=== PATIENT | male | born 1970 | race Caucasian/White ===

== ENCOUNTER 2022-03-27 19:31 | Inpatient (IN) | payer OTHER ==
[~2022-03-27] VITALS: Ht 170.2 cm; Wt 81.6 kg
[2022-03-28 06:37] LABS: HEMOGLOBIN 11.8 gm/dl (14.0-17.5); RED BLOOD COUNT 4.25 M/UL (4.20-5.50)
[2022-03-28 06:52] LABS: BUN/CREATININE RATIO 20 (0-10)
[2022-03-29 02:53] LABS: HEMOGLOBIN 10.5 gm/dl (14.0-17.5); RED BLOOD COUNT 3.8 M/UL (4.20-5.50)
[2022-03-29 04:27] LABS: BUN/CREATININE RATIO 19 (0-10)
[2022-03-29 08:12] LABS: VITAMIN D, 25-HYDROXY 45.1 ng/mL (30.0-100.0)
[2022-03-29 09:30] LABS: CANDIDA ALBICANS Not Detected (Negative); CANDIDA KRUSEI Not Detected (Negative); CANDIDA TROPICALIS Not Detected (Negative); ESCHERICHIA COLI Not Detected (Negative); HAEMOPHILUS INFLUENZAE Not Detected (Negative); KLEBSIELLA OXYTOCA Not Detected (Negative); KLEBSIELLA PNEUMONIAE Not Detected (Negative); KPC-CARBAPENEM-RESISTANCE GENE Not Detected (Negative); PROTEUS Not Detected (Negative); PSEUDOMONAS AERUGINOSA Not Detected (Negative); SERRATIA MARCESANS Not Detected (Negative); STREP AGALACTIAE (GROUP B) Not Detected (Negative); STREP PYOGENES (GROUP A) Not Detected (Negative); STREPTOCOCCUS Not Detected (Negative); vanA/B (VANCOMYCIN RESIST GENE Not Detected (Negative)
[2022-03-29 10:47] LABS: STAPHYLOCOCCUS DETECTED (Negative); STAPHYLOCOCCUS AUREUS DETECTED (Negative)
[2022-03-30 06:32] LABS: HEMOGLOBIN 9.4 gm/dl (14.0-17.5); RED BLOOD COUNT 3.45 M/UL (4.20-5.50); WHITE BLOOD COUNT 9.8 K/UL (4.5-11.0)
[2022-03-30 06:56] LABS: BUN/CREATININE RATIO 14 (0-10)
[2022-03-31 07:25] LABS: HEMOGLOBIN 9.7 gm/dl (14.0-17.5); RED BLOOD COUNT 3.66 M/UL (4.20-5.50)
[2022-03-31 07:28] LABS: WHITE BLOOD COUNT 12.4 K/UL (4.5-11.0)
[2022-03-31 08:09] LABS: BUN/CREATININE RATIO 15 (0-10)
[2022-03-31 14:43] LABS: BUN/CREATININE RATIO 21 (0-10)
[2022-03-31 21:10] LABS: CHLAMYDIA TRACHOMATIS, NAA Negative (Negative); NEISSERIA GONORRHOEAE, NAA Negative (Negative)
[2022-04-01 06:18] LABS: HEMOGLOBIN 10.7 gm/dl (14.0-17.5); RED BLOOD COUNT 3.93 M/UL (4.20-5.50); WHITE BLOOD COUNT 12.2 K/UL (4.5-11.0)
[2022-04-01 06:45] LABS: BUN/CREATININE RATIO 20 (0-10)
[2022-04-01 07:11] LABS: HIV AB/P24 AG SCREEN Non Reactive (Non Reactive)
[2022-04-01 15:45] LABS: BUN/CREATININE RATIO 22 (0-10)
--- NOTE | 2022-04-01 17:13 | NUR ---
Pt currently resting comfortably.
[2022-04-02 07:28] LABS: BUN/CREATININE RATIO 21 (0-10)
[2022-04-02 15:20] LABS: BUN/CREATININE RATIO 19 (0-10)
[2022-04-02 19:49] LABS: BUN/CREATININE RATIO 21 (0-10)
[2022-04-03 06:37] LABS: BUN/CREATININE RATIO 18 (0-10)
[2022-04-03] MEDS ORDERED: ENOXAPARIN40 MG/0.4 SC (10:37)
[2022-04-03] MEDS ORDERED: HYDROXYZINE PAM25 MG PO (10:37)
[2022-04-03] MEDS ORDERED: FLORANEX GRANU1 EACH PO (10:37)
[2022-04-03] MEDS ORDERED: ROXICODONE TAB 55 MG PO (10:37)
[2022-04-03] MEDS ORDERED: MELATONIN3 MG PO (10:37)
[2022-04-03] MEDS ORDERED: SODIUM CHLORIDE1 G1 PO (10:37)
--- NOTE | 2022-04-03 11:28 | NUR ---
ATTEMPTED TO PLACE A PICC LINE TO THE LEFT BASILIC VEIN X1 STICK USING ULTRASOUND GUIDANCE AND STERILE TECHINQUE I WAS ABLE TO OBTAIN ACCESS INTO VEIN BUT UNABLE TO THREAD PICC LINE CATHETER TO THE SVC, THE PICC LINE WOULD THREAD HALF TO 3/[address] IN AND WOULD HIT AN OBSTRUCTION THAT I WAS UNABLE TO PASS PT REFUSED TO LET ME ATTEMPT ON THE RIGHT ARM AT THIS TIME PRIMARY RN LOGAN NOTIFIED AND WILL SPEAK WITH DR. ORTIZ I ATTEMPTED TO CALL DR. ORTIZ WITH NO ANSWER LOGAN WILL NOTIFIY
[2022-04-03 20:13] LABS: HBSAG SCREEN Negative (Negative); HCV AB >11.0 (0.0-0.9); HCV LOG10 5.299 (.); HEP A AB, IGM Negative (Negative); HEP B CORE AB, IGM Negative (Negative); HEPATITIS C QUANTITATION 199000 IU/mL (.)
[2022-04-04 07:24] LABS: BUN/CREATININE RATIO 21 (0-10)
== END 2022-04-04 08:38 | DRG 853 ==
LOC: M/S 19:31 → MED SURG 4 20:56
PROVIDERS: Internal Medicine; Internal Medicine Infectious Disease; Internal Medicine Nephrology; Orthopaedic Surgery; ADMIT Internal Medicine
PROC: 3E1U38Z Irrigation of Joints using Irrigating Substance, Percutaneous Approach (ICD-10-PCS; 2022-03-28)
PROC: 0SBC0ZZ Excision of Right Knee Joint, Open Approach (ICD-10-PCS; principal; 2022-03-28 17:30)
PROC: B24BZZZ Ultrasonography of Heart with Aorta (ICD-10-PCS; 2022-03-30)
PROC: 05JY3ZZ Inspection of Upper Vein, Percutaneous Approach (ICD-10-PCS; 2022-04-03)
DX: A41.02 Sepsis due to Methicillin resistant Staphylococcus aureus (principal); Z20.822 Contact with and (suspected) exposure to COVID-19; I26.99 Other pulmonary embolism without acute cor pulmonale; N17.9 Acute kidney failure, unspecified; M00.861 Arthritis due to other bacteria, right knee; L02.415 Cutaneous abscess of right lower limb; E22.2 Syndrome of inappropriate secretion of antidiuretic hormone; E87.2 Acidosis; R91.1 Solitary pulmonary nodule; M65.861 Other synovitis and tenosynovitis, right lower leg; R94.5 Abnormal results of liver function studies; E87.5 Hyperkalemia; F17.210 Nicotine dependence, cigarettes, uncomplicated; K21.9 Gastro-esophageal reflux disease without esophagitis; D64.9 Anemia, unspecified; Z96.643 Presence of artificial hip joint, bilateral; Z83.3 Family history of diabetes mellitus
CPT/HCPCS: ECHO; 36415; 71250; 73562; 80048; 80053; 80074; 82436; 82533; 82550; 82553; 82728; 83540; 83550; 83605; 83735; 83880; 83935; 84100; 84133; 84300; 84439; 84443; 85025; 85027; 85652; 86140; 86141; 87040; 87070; 87077; 87150; 87186; 87205; 87389; 93306; 97110; 97116; 97116-GP-CQ; 97162; 97166; 97530-GP-CQ; C1751; J0690; J0696; J0878; J1170; J1650; J1885; J2001; J2250; J2270; J2405; J2704; J3010; J3370; J7070; Q0177; U0002

== ENCOUNTER → 2022-05-20 | Outpatient (CLI) | payer OTHER ==
[~2022-05-20] MED LIST: ENOXAPARIN40 MG/0.4 SC; FLORANEX GRANU1 EACH PO; HYDROXYZINE PAM25 MG PO; MELATONIN3 MG PO; ROXICODONE TAB 55 MG PO; SODIUM CHLORIDE1 G1 PO
== END ==
LOC: MRI 05-09 15:00
DX: M00.9 Pyogenic arthritis, unspecified (principal); M86.9 Osteomyelitis, unspecified
CPT/HCPCS: 73723; A9577

== ENCOUNTER → 2022-06-19 | Outpatient (CLI) | payer OTHER | LOC: HEART 5 06-11 10:00 | DX: Z01.810 Encounter for preprocedural cardiovascular examination (principal); I38 Endocarditis, valve unspecified | CPT/HCPCS: 93306 ==